=== PATIENT | male | born 1965 | race Native Hawaiian/Other Pacific Islander ===

== ENCOUNTER 2016-09-06 06:04 | Day surgery (SDC) | payer MEDICARE, MEDICAID ==
[~2016-09-06] VITALS: Ht 175.3 cm; Wt 114.5 kg
[~2016-09-06 06:04] MED LIST: ALBU0.212 IH; ALBU8.5H IH; BUDE10.2 IH; CIPR500S4 PO; IPRAHFA IH; MONT10TA21 PO; PRED10TA3 PO
[2016-09-06] MEDS ORDERED: SODIUM CHLORIDE 0.9% 1,000 ML IV ONE ×2 (06:18→07:00)
[2016-09-06] MEDS ORDERED: ZOLP10 PO (06:38)
[2016-09-06] MEDS ORDERED: FLUT16H NASAL (06:38)
[2016-09-06] MEDS ORDERED: DULO30CA2 PO (06:38)
[2016-09-06] MEDS ORDERED: ITRA100 PO (06:38)
[2016-09-06] MEDS ORDERED: GABA-531 PO (06:38)
[2016-09-06] MEDS ORDERED: RANI150T7 PO (06:38)
[2016-09-06] MEDS ORDERED: FentaNYL CITRATE-PF 100 MCG/2 ML VIAL ONE (08:03)
[2016-09-06] MEDS ORDERED: MIDAZOLAM HCL 2 MG/2 ML VIAL ONE (08:03)
[2016-09-06] MEDS ORDERED: MethylPREDNISolone SOD SUCC 125 MG/2 ML VIAL IVP ONE (08:45)
[2016-09-06] MEDS ORDERED: MethylPREDNISolone SOD SUCC 125 MG/2 ML VIAL ONE (09:15)
[2016-09-06] MEDS ORDERED: LIDOCAINE HCL 4% 50 ML SOLUTION TP ONE (17:53)
[2016-09-06] MEDS ORDERED: LIDOCAINE HCL 2% 30 ML JELLY TP ONE (17:53)
[2016-09-06] MEDS ORDERED: BENZOCAINE 20% 50 MCG/SPRAY 57 GM TP ONE (17:53)
[2016-09-06] MEDS ORDERED: OXYGEN THERAPY IH SCH (20:00)
== END 2016-09-06 10:15 | disposition home or self-care (01) ==
LOC: SURGERY 06:04
PROVIDERS: ATTEND Internal Medicine Critical Care Medicine
DX: J38.4 Edema of larynx (principal); B37.0 Candidal stomatitis; J44.9 Chronic obstructive pulmonary disease, unspecified; I10 Essential (primary) hypertension; G47.33 Obstructive sleep apnea (adult) (pediatric)
CPT/HCPCS: 31623; 31624; 71010; 87015 ×2; 87070; 87077; 87101; 87186; 87205; 87220; 88108; 88305; 88312; 93005; 94640; J2250; J2930; J3010; J7030

== ENCOUNTER 2017-04-23 07:13 | Day surgery (SDC) | payer MEDICARE, MEDICAID ==
[~2017-04-23] VITALS: Ht 170.2 cm; Wt 101.4 kg
[~2017-04-23 07:13] MED LIST changes: -ALBU8.5H IH; +ALBU8.5H8 IH; +DULO30CA2 PO; +FLUT16H NASAL; +GABA-531 PO; +ITRA100 PO; +RANI150T7 PO; +ZOLP10TA7 PO
[2017-04-23] MEDS ORDERED: LIDOCAINE HCL 4% 50 ML SOLUTION TP ONE (07:14)
[2017-04-23] MEDS ORDERED: LIDOCAINE HCL 2% 30 ML JELLY TP ONE (07:14)
[2017-04-23] MEDS ORDERED: BENZOCAINE 20% 50 MCG/SPRAY 57 GM TP ONE (07:14)
[2017-04-23] MEDS ORDERED: ALBUTEROL SULFATE 2.5 MG/0.5 ML NEB SOLUTION NEB ONE (07:14)
[2017-04-23] MEDS ORDERED: SODIUM CHLORIDE 0.9% 1,000 ML IV ONE ×2 (07:27→07:30)
[2017-04-23] MEDS ORDERED: FentaNYL CITRATE-PF 100 MCG/2 ML VIAL ONE (08:10)
[2017-04-23] MEDS ORDERED: MIDAZOLAM HCL 2 MG/2 ML VIAL ONE (08:10)
[2017-04-23] MEDS ORDERED: MethylPREDNISolone SOD SUCC 125 MG/2 ML VIAL IVP ONE (09:00)
[2017-04-23] MEDS ORDERED: MethylPREDNISolone SOD SUCC 125 MG/2 ML VIAL ONE (09:35)
[2017-04-23] MEDS ORDERED: OXYGEN THERAPY IH SCH (20:00)
== END 2017-04-23 10:30 | disposition home or self-care (01) ==
LOC: SURGERY 07:13
PROVIDERS: ATTEND Internal Medicine Critical Care Medicine
DX: J38.4 Edema of larynx (principal); B37.0 Candidal stomatitis; J39.8 Other specified diseases of upper respiratory tract; J45.909 Unspecified asthma, uncomplicated; E78.00 Pure hypercholesterolemia, unspecified; Z87.891 Personal history of nicotine dependence; Z87.01 Personal history of pneumonia (recurrent)
CPT/HCPCS: 31623; 31624; 71010; 87015 ×2; 87070; 87077; 87101; 87186; 87205; 87220; 88108; 88312; J2250; J2930; J3010; J7030

== ENCOUNTER 2019-03-05 05:05 | Day surgery (SDC) | payer MEDICARE, MEDICAID ==
[~2019-03-05] VITALS: Ht 177.8 cm; Wt 95.5 kg
[2019-03-05] MEDS ORDERED: SODIUM CHLORIDE 0.9% 1,000 ML IV ONE ×2 (05:28→07:00)
[2019-03-05] MEDS ORDERED: FentaNYL CITRATE-PF 100 MCG/2 ML VIAL ONE (07:54)
[2019-03-05] MEDS ORDERED: MIDAZOLAM HCL 2 MG/2 ML VIAL ONE (07:54)
[2019-03-05] MEDS ORDERED: MethylPREDNISolone SOD SUCC 125 MG/2 ML VIAL ONE (08:38)
[2019-03-05] MEDS ORDERED: MethylPREDNISolone SOD SUCC 125 MG/2 ML VIAL IVP ONE (08:45)
[2019-03-05] MEDS ORDERED: LIDOCAINE 4% 50 ML SOLUTION TP ONE (12:00)
[2019-03-05] MEDS ORDERED: LIDOCAINE 2% 30 ML JELLY TP ONE (12:00)
[2019-03-05] MEDS ORDERED: BENZOCAINE 20% 50 MCG/SPRAY 57 GM TP ONE (12:00)
[2019-03-05] MEDS ORDERED: ALBUTEROL SULFATE 2.5 MG/0.5 ML NEB SOLUTION NEB ONE (12:00)
[2019-03-05] MEDS ORDERED: OXYGEN THERAPY IH SCH (20:00)
== END 2019-03-05 10:50 | disposition home or self-care (01) ==
LOC: SURGERY 05:05
PROVIDERS: ATTEND Internal Medicine Critical Care Medicine
DX: J38.4 Edema of larynx (principal); B37.0 Candidal stomatitis; J45.909 Unspecified asthma, uncomplicated; J84.9 Interstitial pulmonary disease, unspecified; J98.8 Other specified respiratory disorders; Z87.891 Personal history of nicotine dependence; Z79.899 Other long term (current) drug therapy; Z98.890 Other specified postprocedural states
CPT/HCPCS: 31623; 31624; 71045; 87015; 87070; 87101; 87205; 87206; 87220; 88108; 88312; J2250; J2930; J3010; J7030